=== PATIENT | female | born 1985 | race Hispanic/Latino ===

== ENCOUNTER 2022-03-25 23:09 | Emergency (ER) | payer OTHER ==
[~2022-03-25] VITALS: Ht 170.2 cm; Wt 99.8 kg
[2022-03-25 23:48] VITALS: BP 115/65
[2022-03-26 00:11] LABS: APPEARANCE,URINE CLEAR (CLEAR); BILIRUBIN,URINE NEGATIVE (NEGATIVE); COLOR,URINE LIGHT-YELLOW (YELLOW); GLUCOSE, URINE (UA) NEGATIVE (NEGATIVE); HCG,QUALITATIVE URINE POSITIVE (NEGATIVE); KETONES,URINE NEGATIVE (NEGATIVE); LEUKOCYTE ESTERASE ,URINE 250 Leu/uL (NEGATIVE); NITRATE,URINE NEGATIVE (NEGATIVE); OCCULT BLOOD,URINE MODERATE (NEGATIVE); PH,URINE 5.5 (5.0-8.0); PROTEIN,URINE NEGATIVE (NEGATIVE); UROBILINOGEN,URINE 0.2 mg/dL (0.2-1.0)
[2022-03-26 00:44] LABS: MUCUS,URINE RARE LPF (None Seen); SQUAMOUS EPITHELIAL CELL,UR RARE /HPF (0-2)
== END 2022-03-26 01:55 | disposition left against medical advice (07) ==
LOC: EDH 23:09
DX: O20.0 Threatened abortion (principal); O23.41 Unspecified infection of urinary tract in pregnancy, first trimester; N39.0 Urinary tract infection, site not specified; Z3A.01 Less than 8 weeks gestation of pregnancy
CPT/HCPCS: 36415; 76801; 81001; 81025; 84702; 87088

== ENCOUNTER 2022-11-03 05:07 | Inpatient (IN) | payer OTHER ==
[~2022-11-03] VITALS: Ht 170.2 cm; Wt 112.5 kg
[2022-11-03] MEDS ORDERED: EPHEDRINE SULFATE 50 MG/ML AMPULE IVP PRN (05:30)
[2022-11-03] MEDS ORDERED: NALOXONE HCL 0.4 MG/1 ML ML IV PRN (05:30)
[2022-11-03] MEDS ORDERED: PROMETHAZINE HCL 25 MG/ML 1ML AMPULE IM PRN (05:30)
[2022-11-03] MEDS ORDERED: MEPERIDINE-PF 50 MG/ML SYG IVP PRN (05:30)
[2022-11-03] MEDS ORDERED: LACTATED RINGERS 1000ML 1,000 ML IV PRN (05:30)
[2022-11-03] MEDS ORDERED: ROPIVACAINE 0.2% 100ML VIAL 100 ML EP PRN (05:30)
[2022-11-03] MEDS ORDERED: OXYTOCIN-LR 20 UNITS/1000 ML 1,000 ML IV SCH ×2 (05:30→11:00)
[2022-11-03] MEDS ORDERED: LACTATED RINGERS 500 ML 500 ML IV PRN (05:30)
[2022-11-03 05:53] LABS: APPEARANCE,URINE CLEAR (CLEAR); BILIRUBIN,URINE NEGATIVE (NEGATIVE); COLOR,URINE LIGHT-YELLOW (YELLOW); GLUCOSE, URINE (UA) NEGATIVE (NEGATIVE); KETONES,URINE NEGATIVE (NEGATIVE); LEUKOCYTE ESTERASE ,URINE 25 Leu/uL (NEGATIVE); NITRATE,URINE NEGATIVE (NEGATIVE); OCCULT BLOOD,URINE NEGATIVE (NEGATIVE); PROTEIN,URINE NEGATIVE (NEGATIVE); UROBILINOGEN,URINE 0.2 mg/dL (0.2-1.0)
[2022-11-03 05:58] LABS: BACTERIA,URINE RARE /HPF (None Seen); SQUAMOUS EPITHELIAL CELL,UR RARE /HPF (0-2)
[2022-11-03 06:18] VITALS: BP 100/63
[2022-11-03 06:21] LABS: HEMATOCRIT 37.5 % (36-48); MEAN CORPUSCULAR HEMOGLOBIN 28.7 pg (27.0-33.0); MEAN CORPUSCULAR HGB CONC 33.3 g/dL (32.0-36.0); RED BLOOD CELL COUNT(AUTO) 4.36 MIL/uL (4.00-5.50); RED CELL DISTRIBUTION WIDTH 13.4 % (11.0-15.5); WHITE BLOOD COUNT (AUTO) 11.9 K/uL (4.8-10.8)
[2022-11-03] MEDS ORDERED: PREN1TAB80 PO (06:21)
[2022-11-03] MEDS ORDERED: ACETAMINOPHEN 325 MG TAB PO PRN (11:00)
[2022-11-03] MEDS ORDERED: MEASLES/MUMPS/RUBELLA VACCINE, LIVE 0.5 ML/VIAL SQ PRN (11:00)
[2022-11-03] MEDS ORDERED: LANOLIN 30GM OINTMENT TP PRN (11:00)
[2022-11-03] MEDS ORDERED: DIPH,PERTUSS(ACELL),TET VAC/PF 0.5 ML VIAL IM PRN (11:00)
[2022-11-03] MEDS ORDERED: WITCH HAZEL 1 PAD TP PRN (11:00)
[2022-11-03] MEDS ORDERED: ACETAMINOPHEN WITH CODEINE 1 TAB TAB PO PRN (11:00)
[2022-11-03] MEDS ORDERED: BENZOCAINE/LANOLIN/ALOE VERA 60 ML AEROSOL TP PRN (11:00)
[2022-11-03 13:00] VITALS: BP 116/62
[2022-11-03] MEDS: IBUPROFEN 600 MG TABLET PO PRN (16:26)
[2022-11-03 19:12] VITALS: BP 117/68
[2022-11-03] MEDS: DOCUSATE SODIUM 100 MG CAP PO SCH (21:08)
[2022-11-03 23:31] VITALS: BP 84/56
[2022-11-04 03:31] VITALS: BP 86/53
[2022-11-04] MEDS: IBUPROFEN 600 MG TABLET PO PRN ×2 (04:20→09:13)
[2022-11-04 06:25] LABS: HEMATOCRIT 35.5 % (36-48); MEAN CORPUSCULAR HEMOGLOBIN 28.5 pg (27.0-33.0); MEAN CORPUSCULAR VOLUME 86.4 fL (79-99); RED BLOOD CELL COUNT(AUTO) 4.11 MIL/uL (4.00-5.50); RED CELL DISTRIBUTION WIDTH 13.4 % (11.0-15.5); WHITE BLOOD COUNT (AUTO) 12.8 K/uL (4.8-10.8)
[2022-11-04 07:00] VITALS: BP 92/61
[2022-11-04] MEDS: DOCUSATE SODIUM 100 MG CAP PO SCH (09:12)
[2022-11-04 11:00] VITALS: BP 110/64
== END 2022-11-04 11:55 | disposition home or self-care (01) | DRG 807 ==
LOC: LDH 05:07 → WSH 13:00
PROVIDERS: ADMIT Obstetrics & Gynecology; ATTEND Obstetrics & Gynecology
PROC: 10E0XZZ Delivery of Products of Conception, External Approach (ICD-10-PCS; principal; 2022-11-03)
PROC: 0KQM0ZZ Repair Perineum Muscle, Open Approach (ICD-10-PCS; 2022-11-03)
PROC: 3E0R3BZ Introduction of Anesthetic Agent into Spinal Canal, Percutaneous Approach (ICD-10-PCS; 2022-11-03)
PROC: 00HU33Z Insertion of Infusion Device into Spinal Canal, Percutaneous Approach (ICD-10-PCS; 2022-11-03)
DX: O24.420 Gestational diabetes mellitus in childbirth, diet controlled (principal); Z37.0 Single live birth; O99.214 Obesity complicating childbirth; O70.1 Second degree perineal laceration during delivery; Z3A.38 38 weeks gestation of pregnancy
CPT/HCPCS: 36415; 76805; 81001; 82947; 85027; 86592; 86850; 86900; 86901; 87340; A4314; G0378; J2175; J2550; J2590; J2795; J7120

== ENCOUNTER 2024-11-18 16:46 | Emergency (ER) | payer BC, OTHER ==
[~2024-11-18] VITALS: Ht 170.2 cm; Wt 104.3 kg
[~2024-11-18 16:46] MED LIST: PREN1TAB80 PO
--- NOTE | 2024-11-18 17:07 | ERN ---
ED Note History of Present Illness Stated Complaint: , SOB Chief Complaint: Painful Urination Time Seen by MD: 16:50 Time Seen by Midlevel: 16:58 Dictation: Ms. Torrez is a 39 year old female with history of obesity and frequent UTI ([id number]) who presented to the emergency department this afternoon for evaluation of dysuria. She reports low back pain, dysuria, and frequency/urgency. She states she took a home test on Sunday which was positive. She also reports congestion, cough, shortness of breath. She states her has been was diagnosed recently with bacterial bronchitis. She fever, chills,chest pain, palpitations, edema, abdominal pain, nausea, vomiting, hematemesis, constipation, diarrhea, melena, hematochezia, vaginal discharge/bleeding, headache, dizziness, or focal weakness/paresthesia Allergies: Coded Allergies: No Known Drug Allergies (Unverified Allergy, Unknown, 03/25/22) Home Meds Reported Medications Vits W-Ca,Fe,FA(<1Mg) ( Vitamins) 1 Each Tablet, 1 EACH PO DAILY, TAB 11/03/22 Past Medical History Past Medical History: UTI, Other Additional Past Medical Hx: GESTATIONAL DIABETES Surgical History: None PSYCH History: no pertinent psych hx Family History: Negative Social History: Lives with family LMP: Sep 15, 2024 : 5 Para: 3 Aborts: 1 RN Note Reviewed/Agreed w/PFSH: Yes Review of System Dictation REVIEW OF SYSTEMS: CONSTITUTIONAL: Patient denies fevers, sweats and weight changes. Reported chills. EYES: Patient denies any visual symptoms. EARS, NOSE, AND THROAT: No difficulties with hearing. No symptoms of rhinitis or sore throat. Reported nasal congestion. CARDIOVASCULAR: Patient denies chest pains, palpitations, orthopnea and paroxysmal nocturnal dyspnea. RESPIRATORY: No wheezing. Reports cough and shortness of breath. She states her recently diagnosed with bronchitis. GI: No nausea, vomiting, diarrhea, constipation, abdominal pain, hematochezia or melena. : Reports burning sharp pain with urination. Reports low back pain. Reports urinary frequency and urgency. Denies vaginal bleeding or discharge. MUSCULOSKELETAL: No myalgias or arthralgias. NEUROLOGIC: No chronic headaches, no seizures. Patient denies numbness, tingling or weakness. PSYCHIATRIC: Patient denies problems with mood disturbance. No problems with anxiety. ENDOCRINE: No excessive urination or excessive thirst. DERMATOLOGIC: Patient denies any rashes or skin changes. Initial Vital Sign VS Vital Signs Date Time Temp Pulse Resp B/P (MAP) Pulse Ox O2 Delivery O2 Flow Rate FiO2 11/18/24 16:50 97.2 88 14 167/96 98 Room Air 0 11/18/24 17:36 21 Physical Exam Dictation Vital signs: Reviewed. Afebrile. Constitutional: No acute distress. Non-toxic appearing. Head/Face: Normocephalic, atraumatic. Eyes: Periorbital areas with no swelling, redness, or edema. Lids and lashes are normal. Conjunctival injection is absent. Sclera anicteric. Pupils equal, round, reactive to light. ENT: Pinnas intact and no signs of trauma or erythema. Ear canals clear and no discharge. TMs no erythema. No nasal discharge or bleeding noted. Oropharynx with no exudate, redness, swelling, masses, exudates, or evidence of obstr uction. Uvula midline. Mucous membranes moist. Neck: Trachea midline, no masses palpated, and no cervical lymphadenopathy. No swelling. Supple, full range of motion. Chest/Axilla: No tenderness, no crepitus, no paradoxical movement, no retractions. Cardiovascular: Regular rate, regular rhythm, no murmur, no gallops. Symmetric pulses. No peripheral edema. Respiratory: Respirations even and unlabored. Lung sounds clear; no wheezes, rales or rhonchi. Room air spO2 98%. Gastrointestinal: Obese. No distention is appreciated. Bowel sounds are normal. No mass or organomegaly . There is no tenderness. No rebound. No rigidity. No voluntary or involuntary guarding. No Roberts's sign. : Negative CVA tenderness bilaterally. Neurological: Normal speech, gross motor function intact, gross sensory function intact. No focal weakness/Paresthesia. Musculoskeletal/Extremities: All extremities have full range of motion, no pain or tenderness on palpation. Symmetric pulses. Integumentary: Intact. Skin is normal color, warm and dry. Cap refill less than 2 seconds. Results (Laboratory/Radiology) Laboratory/Radiology Laboratory Tests Test 11/18/24 17:16 White Blood Count 9.7 K/uL (4.8-10.8) Red Blood Count 4.71 MIL/uL (4.00-5.50) Hemoglobin 14.1 g/dL (12.0-16.0) Hematocrit 43.0 % (36-48) Mean Corpuscular Volume 91.3 fL (79-99) Mean Corpuscular Hemoglobin 29.9 pg (27.0-33.0) Mean Corpuscular Hemoglobin Concent 32.8 g/dL (32.0-36.0) Red Cell Distribution Width 14.1 % (11.0-15.5) Platelet Count 237 K/uL (130-400) Mean Platelet Volume 11.3 fL (7.5-10.5) H Immature Granulocyte % (Auto) 4.8 % (0-1) H Neutrophils (%) (Auto) 58.0 % (40.0-77.0) Lymphocytes (%) (Auto) 17.4 % (21.0-51.0) L Monocytes (%) (Auto) 12.5 % (3.0-13.0) Eosinophils (%) (Auto) 6.2 % (0.0-8.0) Basophils (%) (Auto) 1.1 % (0.0-5.0) Neutrophils # (Auto) 5.7 K/uL (1.8-7.7) Lymphocytes # (Auto) 1.7 K/uL (1.0-4.8) Monocytes # (Auto) 1.2 K/uL (0.1-1.0) H Eosinophils # (Auto) 0.60 K/uL (0.00-0.70) Basophils # (Auto) 0.11 K/uL (0.00-0.20) Absolute Immature Granulocyte (auto 0.47 K/uL (0-1) Nucleated Red Blood Cells 0.0 % (0.0-0.19) Urine Color YELLOW (YELLOW) Urine Appearance CLEAR (CLEAR) Urine pH 5.5 (5.0-8.0) Urine Specific [place] 1.033 (1.001-1.031) Urine Protein 10 mg/dL (NEGATIVE) H Urine Glucose (UA) NEGATIVE mg/dL (NEGATIVE) Urine Ketones 5 mg/dL (NEGATIVE) H Urine Occult Blood SMALL (NEGATIVE) H Urine Nitrate NEGATIVE (NEGATIVE) Urine Bilirubin NEGATIVE mg/dL (NEGATIVE) Urine Urobilinogen 2.0 mg/dL (0.2-1.0) H Urine Leukocyte Esterase 250 Nidhi/uL (NEGATIVE) H Urine RBC 6-10 /HPF (0-1) H Urine WBC 2-5 /HPF (0-1) H Urine Squamous Epithelial Cells FEW /HPF (0-2) Urine Bacteria RARE /HPF (None Seen) Sodium Level 137 mmol/L (136-145) Potassium Level 3.4 mmol/L (3.5-5.1) L Chloride Level 102 mmol/L (101-111) Carbon Dioxide Level 31 mmol/L (21-32) Blood Urea Nitrogen 11 mg/dL (7-18) Creatinine 0.7 mg/dL (0.5-1.0) Glomerular Filtration Rate Calc 112 mL/min (>90) Random Glucose 89 mg/dL (70-105) Total Calcium 8.6 mg/dL (8.5-10.1) Human Chorionic Gonadotropin, Quant 23196 mIU/mL (0-5) H Labs Reviewed?: Yes ED Course ED Course Orders Procedure Category Date Status Time Urinalysis Profile LAB 11/18/24 Complete 17:03 Hcg,Quantitative LAB 11/18/24 Complete 17:07 Cbc With Differential LAB 11/18/24 Complete 17:07 Basic Metabolic Panel LAB 11/18/24 Complete 17:07 Culture Urine BARBIE 11/18/24 In Process 17:28 Ceftriaxone 1g Vial PHA 11/18/24 Complete (Rocephine 1g Inj) 18:00 Current Medications Medications (Trade) Dose Ordered Sig/Alireza Route PRN Reason Start Time Stop Time Status Last Admin Dose Admin Ceftriaxone Sodium (ROCEphine 1G INJ) 1 gm ONCE ONCE IM 11/18/24 18:00 11/18/24 18:01 DC Vital Signs Date Time Temp Pulse Resp B/P (MAP) Pulse Ox O2 Delivery O2 Flow Rate FiO2 11/18/24 17:36 98.1 85 16 165/92 98 Room Air* 0 21 11/18/24 16:50 97.2 88 14 167/96 98 Room Air 0 Uneventful ED course. Upon arrival to the emergency department noted elevated blood pressure reading of 167/96. Patient states she believes she had high blood pressure during previous pregnancies. Laboratory findings as noted below. No elevation of WBCs. H/H stable. K 3.4. UA cloudy'; + blood, protein, ketones, and leukocyte esterase. Quantitative HCG 18324. UCX pending. While in the ED she received dose Rocephin as well as KCl.. Medical Decision Making MDM MDM: Differential diagnosis: UTI, influenza, COVID Rationale: Tests considered and ordered secondary to shared decision making include: Lab Previous outside records reviewed: Old ER visits. Risk of complication and/or morbidity or mortality of patient management: None Medications-Per medication reconciliation Need for hospitalization: Patient does not meet criteria for hospitalization. Need for emergency major/minor surgery: No There are no social concerns with this patient. Prescription drug management: Cephalexin Prescriptions will include symptomatic care Patient's prior external medical records from other ER visits were reviewed by ying diggs as indicated. Prior testing and results from previous visits were reviewed. Prior tests were taken into account with medical decision making and resource utilization, independent historian/historians were used to obtain complete medical history. I independently interpreted the test that were performed, results were reviewed by me and considered findings on radiology if ordered. Medical management and examination interpretation discussions were had by me with other qualified healthcare professionals as indicated for the patient's care. DX & DISP Disposition: Discharge Departure Impression: Primary Impression: UTI (urinary tract infection) Additional Impressions: , Hypokalemia Condition: Stable Scripts Cephalexin (Cephalexin) 500 Mg Tablet 1 TAB PO BID for 7 Days, #14 TAB 0 Refills Prov: NIKHIL GONZALEZ NP 11/18/24 Additional Instructions: Rest. Drink plenty of fluids. Eat well-balanced diet. Continue antibiotic cephalexin twice daily for seven days. Follow up as soon as possible with your process validation engineer. Return to the emergency department for any worsening of symptoms or concerns. Referrals: EJ ANDERSEN MD (PCP) Time of Disposition: 18:18 NIKHIL GONZALEZ NP Nov 18, 2024 17:07
[2024-11-18 17:24] LABS: BASOPHILS # (AUTO) 0.11 K/uL (0.00-0.20); BASOPHILS % (AUTO) 1.1 % (0.0-5.0); EOSINOPHILS % (AUTO) 6.2 % (0.0-8.0); IMMATURE GRANULOCYTE ABSOLUTE 0.47 K/uL (0-1); LYMPHOCYTES # (AUTO) 1.7 K/uL (1.0-4.8); LYMPHOCYTES % (AUTO) 17.4 % (21.0-51.0); MEAN CORPUSCULAR HEMOGLOBIN 29.9 pg (27.0-33.0); MEAN CORPUSCULAR HGB CONC 32.8 g/dL (32.0-36.0); MEAN CORPUSCULAR VOLUME 91.3 fL (79-99); MONOCYTES # (AUTO) 1.2 K/uL (0.1-1.0); MONOCYTES % (AUTO) 12.5 % (3.0-13.0); NEUTROPHILS # (AUTO) 5.7 K/uL (1.8-7.7); PLATELET COUNT (AUTO) 237 K/uL (130-400); RED BLOOD CELL COUNT(AUTO) 4.71 MIL/uL (4.00-5.50); RED CELL DISTRIBUTION WIDTH 14.1 % (11.0-15.5); WHITE BLOOD COUNT (AUTO) 9.7 K/uL (4.8-10.8)
[2024-11-18 17:27] LABS: APPEARANCE,URINE CLEAR (CLEAR); BILIRUBIN,URINE NEGATIVE (NEGATIVE); COLOR,URINE YELLOW (YELLOW); GLUCOSE, URINE (UA) NEGATIVE (NEGATIVE); KETONES,URINE 5 mg/dL (NEGATIVE); LEUKOCYTE ESTERASE ,URINE 250 Leu/uL (NEGATIVE); NITRATE,URINE NEGATIVE (NEGATIVE); OCCULT BLOOD,URINE SMALL (NEGATIVE); PH,URINE 5.5 (5.0-8.0); PROTEIN,URINE 10 mg/dL (NEGATIVE)
[2024-11-18 17:28] LABS: ADD UA MICROSCOPIC YES
[2024-11-18 17:31] LABS: BACTERIA,URINE RARE /HPF (None Seen); MUCUS,URINE RARE LPF (None Seen); SQUAMOUS EPITHELIAL CELL,UR FEW /HPF (0-2)
[2024-11-18 17:35] LABS: CREATININE 0.7 mg/dL (0.5-1.0); POTASSIUM 3.4 mmol/L (3.5-5.1)
[2024-11-18] MEDS ORDERED: CEPH500T PO (18:17)
[2024-11-18] MEDS: cefTRIAXone 1G VIAL IM ONE (18:29)
[2024-11-18] MEDS: PoTASSium chloRIDE 20MEQ ER 20 MEQ ERTAB PO ONE (18:32)
[2024-11-18] MEDS: acetaMINOPHEN 325 MG TAB PO ONE (18:34)
[2024-11-18 18:38] VITALS: BP 162/90; PULSE 80; RESP 16; TEMP 98.1; O2SAT 98
== END 2024-11-18 18:42 | disposition home or self-care (01) ==
LOC: EDH 16:46
DX: O23.41 Unspecified infection of urinary tract in pregnancy, first trimester (principal); N39.0 Urinary tract infection, site not specified; O26.891 Other specified pregnancy related conditions, first trimester; R10.2 Pelvic and perineal pain; E87.6 Hypokalemia; Z3A.09 9 weeks gestation of pregnancy
CPT/HCPCS: 99284; 80048; 84702; 85025; 87086; 81001; 36415; 96372; J0696

== ENCOUNTER 2024-12-09 12:55 | Emergency (ER) | payer BC ==
[~2024-12-09] VITALS: Ht 170.2 cm; Wt 99.8 kg
[~2024-12-09 12:55] MED LIST changes: +CEPH500T PO
[2024-12-09 13:33] LABS: APPEARANCE,URINE CLEAR (CLEAR); GLUCOSE, URINE (UA) NEGATIVE (NEGATIVE); LEUKOCYTE ESTERASE ,URINE NEGATIVE Leu/uL (NEGATIVE); NITRATE,URINE NEGATIVE (NEGATIVE); OCCULT BLOOD,URINE NEGATIVE (NEGATIVE)
[2024-12-09 13:34] LABS: ADD UA MICROSCOPIC NO
[2024-12-09 14:23] LABS: IMMATURE GRANULOCYTE ABSOLUTE 0.29 K/uL (0-1); NUCLEATED RED BLOOD CELLS 0.0 % (0.0-0.19); PLATELET COUNT (AUTO) 229 K/uL (130-400); RED BLOOD CELL COUNT(AUTO) 4.68 MIL/uL (4.00-5.50); RED CELL DISTRIBUTION WIDTH 14.0 % (11.0-15.5); WHITE BLOOD COUNT (AUTO) 8.8 K/uL (4.8-10.8)
[2024-12-09 14:30] LABS: CREATININE 0.5 mg/dL (0.5-1.0); GLOMERULAR FILTR. RATE CALC 122.0 mL/min (>90); GLUCOSE,RANDOM 80.0 mg/dL (70-105); SODIUM SERUM 139.0 mmol/L (136-145); UREA NITROGEN, BLOOD 8.0 mg/dL (7-18)
[2024-12-09 14:57] LABS: HCG,QUANTITATIVE 33012.0 mIU/mL (0-5)
--- NOTE | 2024-12-09 15:24 | HMCIMG ---
EXAM: US Obstetrical, Complete <14 weeks CLINICAL HISTORY: vaginal bleeding during TECHNIQUE: Transabdominal imaging of the maternal pelvis and a <14 week gestation with image documentation. COMPARISON: None provided. FINDINGS: GESTATION: A gestation sac is noted measuring 5.2 cm, corresponding to 12 weeks 0 days. Yolk sac is not visualized on the present scan. heart rate is 160 bpm. UTERUS: Unremarkable. No myometrial mass. CERVIX: Closed. Unremarkable. OVARIES: The right ovary is obscured; however, the right adnexa is normal. Left ovary measures 2.2 x 1.2 x 2.2 cm with normal flow. FREE FLUID: No free fluid. IMPRESSION: 1. Single live intrauterine at 12 weeks 0 days by gestational sac measurement, with normal heart rate of 160 bpm. 2. No acute findings. /[place]
[2024-12-09 15:48] VITALS: BP 140/89; PULSE 79; RESP 18; TEMP 98.3; O2SAT 100
--- NOTE | 2024-12-09 16:01 | ERN ---
General Chief Complaint: Blood in Urine: Stated Complaint: SENT BY [facility] Time Seen by MD: 13:02 Time Seen by Midlevel: 13:02 Source: patient History of Present Illness Initial Comments 39-year-old female presenting to the emergency department after she noticed vaginal spotting. Patient reports being but has not follow up with y our OBGYN due to insurance issues. She denies any abdominal pain, fever, chills, or any other symptoms at this time. Allergies: Coded Allergies: No Known Drug Allergies (Unverified Allergy, Unknown, 03/25/22) Home Meds Active Scripts Cephalexin (Cephalexin) 500 Mg Tablet, 1 TAB PO BID for 7 Days, #14 TAB 0 Refills Prov:NIKHIL GONZALEZ POLICE CAPTAIN 11/18/24 Reported Medications Vits W-Ca,Fe,FA(<1Mg) ( Vitamins) 1 Each Tablet, 1 EACH PO DAILY, TAB 11/03/22 Past Medical History Past Medical History: Hypertension, UTI, Other Medical History Other: GESTATIONAL DIABETES Past Surgical History: None Family History Family History: Negative Social History Social History: Lives with family Female( History) : 5 Para: 3 Aborts: 1 ROS Dictation CONSTITUTIONAL: Negative except for HPI HEAD/FACE: Negative except for HPI EENT: Negative except for HPI RESPIRATORY: Negative except for HPI GASTROINTESTINAL/ABDOMINAL: Negative except for HPI GENITOURINARY: Negative except for HPI MUSCULOSKELETAL: Negative except for HPI INTEGUMENTARY: Negative except for HPI NEUROLOGICAL/PSYCH: Negative except for HPI HEMATOLOGIC/LYMPHATIC: Negative except for HPI All Systems Negative, Except as noted above. 13 point review of systems assessed and all negative except for above. Physical Exam Physical Exam Dictation Vital Signs reviewed General Appearance: Alert, oriented x 3, no acute distress, well developed, nourished. Head and Face: non-traumatic. Eyes: PERRL, pink conjunctivas, eyelid no trauma, anterior chamber with arcus senilis. Ears: Pinnas intact and no signs of trauma or erythema ear canals clear and no discharge TM no erythema Nose: No discharge, no bleeding. Oropharynx: Mouth normal, tongue pink, pharynx clear,no erythema, tonsils no exudates, no abscesses noted, mucous membrane moist Neck: Supple, non-tender, no thyromegaly, no masses, no JVD, no bruits Breast:Deferred Chest:No tenderness, no crepitus, no paradoxical movement, no retractions Lungs:Clear, well-ventilated, symmetric, no rales, no wheezing, no rhonchi, no stridor, good breath sounds bilaterally Heart: Regular rate, regular rhythm, no murmur, no gallops Vascular: no peripheral edema, Abdomen: Soft, positive bowel sounds, nondistended, no guarding, nontender, no rebound, no masses no hepatomegaly, no splenomegaly, no Roberts's sign, no hernias. Rectal: Deferred Genital: Deferred Neurological: Normal speech, motor function intact, sensory function intact Musculoskeletal: Neck nontender, full range of motion, back nontender, full range of motion, Extremities: nontender, full range of motion Skin: Color pink, dry, no turgor, no rash, no lacerations, no abrasions, no contusions. Lymphatic: Deferred Results Laboratory and Microbiology Lab and Micro Result Laboratory Tests Test 12/09/24 13:00 12/09/24 14:18 Urine Color COLORLESS (YELLOW) Urine Appearance CLEAR (CLEAR) Urine pH 7.5 (5.0-8.0) Urine Specific [place] 1.005 (1.001-1.031) Urine Protein NEGATIVE mg/dL (NEGATIVE) Urine Glucose (UA) NEGATIVE mg/dL (NEGATIVE) Urine Ketones NEGATIVE mg/dL (NEGATIVE) Urine Occult Blood NEGATIVE (NEGATIVE) Urine Nitrate NEGATIVE (NEGATIVE) Urine Bilirubin NEGATIVE mg/dL (NEGATIVE) Urine Urobilinogen 0.2 mg/dL (0.2-1.0) Urine Leukocyte Esterase NEGATIVE Nidhi/uL White Blood Count 8.8 K/uL (4.8-10.8) Red Blood Count 4.68 MIL/uL (4.00-5.50) Hemoglobin 13.9 g/dL (12.0-16.0) Hematocrit 41.5 % (36-48) Mean Corpuscular Volume 88.7 fL (79-99) Mean Corpuscular Hemoglobin 29.7 pg (27.0-33.0) Mean Corpuscular Hemoglobin Concent 33.5 g/dL (32.0-36.0) Red Cell Distribution Width 14.0 % (11.0-15.5) Platelet Count 229 K/uL (130-400) Mean Platelet Volume 12.0 fL (7.5-10.5) H Immature Granulocyte % (Auto) 3.3 % (0-1) H Neutrophils (%) (Auto) 63.0 % (40.0-77.0) Lymphocytes (%) (Auto) 21.4 % (21.0-51.0) Monocytes (%) (Auto) 7.2 % (3.0-13.0) Eosinophils (%) (Auto) 4.1 % (0.0-8.0) Basophils (%) (Auto) 1.0 % (0.0-5.0) Neutrophils # (Auto) 5.6 K/uL (1.8-7.7) Lymphocytes # (Auto) 1.9 K/uL (1.0-4.8) Monocytes # (Auto) 0.6 K/uL (0.1-1.0) Eosinophils # (Auto) 0.36 K/uL (0.00-0.70) Basophils # (Auto) 0.09 K/uL (0.00-0.20) Absolute Immature Granulocyte (auto 0.29 K/uL (0-1) Nucleated Red Blood Cells 0.0 % (0.0-0.19) Sodium Level 139 mmol/L (136-145) Potassium Level 3.5 mmol/L (3.5-5.1) Chloride Level 104 mmol/L (101-111) Carbon Dioxide Level 28 mmol/L (21-32) Blood Urea Nitrogen 8 mg/dL (7-18) Creatinine 0.5 mg/dL (0.5-1.0) Glomerular Filtration Rate Calc 122 mL/min (>90) Random Glucose 80 mg/dL (70-105) Total Calcium 9.3 mg/dL (8.5-10.1) Human Chorionic Gonadotropin, Quant 60979 mIU/mL (0-5) H MDM MDM: Differential diagnosis: Threatened miscarriage, miscarriage, urinary tract infection, There are no social concerns with this patient. Prescription drug management Prescriptions will include: None Medical management and examination interpretation discussions were had by me with other qualified healthcare professionals as indicated for the patient's care. ED Course Orders Procedure Category Date Status Time Cbc With Differential LAB 12/09/24 Complete 13:02 Basic Metabolic Panel LAB 12/09/24 Complete 13:02 Hcg,Quantitative LAB 12/09/24 Complete 13:02 Urinalysis Profile LAB 12/09/24 Complete 13:02 Us Ob <14 Weeks US 12/09/24 Resulted 13:02 Vital Signs Date Time Temp Pulse Resp B/P (MAP) Pulse Ox O2 Delivery O2 Flow Rate FiO2 12/09/24 15:48 98.2 79 18 140/89 100 Room Air* 0 21 12/09/24 12:58 98.2 79 18 140/89 100 Room Air 0 DX & DISP Disposition: Discharge Departure Impression: Primary Impression: Vaginal bleeding during Condition: Stable Additional Instructions: Your blood work today is unremarkable. Your pelvic ultrasound reveals a single live intrauterine gestation measuring approximately 12 weeks with positive heart tones. Please follow up with your OBGYN as discussed. Return to the ER for any new or worsening symptoms Referrals: SALINA CARROLL MD (PCP) I have reviewed the case, and I agree with, Diagnosis and Plan I performed the substantive portion of the visit. I have reviewed and personally made and approve the management plan that is documented in the note by myself or the MICHAEL. I acknowledge for responsibility for the patient's management plan. SALINA IVERSON Dec 09, 2024 16:01
== END 2024-12-09 16:04 | disposition home or self-care (01) ==
LOC: EDH 12:55
DX: O20.9 Hemorrhage in early pregnancy, unspecified (principal); O16.1 Unspecified maternal hypertension, first trimester; Z3A.12 12 weeks gestation of pregnancy
CPT/HCPCS: 36415; 76801; 80048; 81003; 84702; 85025; 99284